=== PATIENT | male | born 1955 | race Asian ===

== ENCOUNTER → 2017-11-03 | Outpatient (CLI) | payer OTHER | END | disposition home or self-care (01) | LOC: RADPV 11:29 | PROVIDERS: ATTEND Internal Medicine | DX: R76.11 Nonspecific reaction to tuberculin skin test without active tuberculosis (principal) | CPT/HCPCS: 71046 ==

== ENCOUNTER → 2018-01-17 | Outpatient (CLI) | payer OTHER ==
[2018-01-18 06:07] LABS: RUBEOLA (MEASLES) IGG >300.0 AU/mL (Immune >29.9)
[2018-01-19 20:06] LABS: RUBEOLA (MEASLES) IGM <0.80 AU (0.00-0.79)
== END | disposition home or self-care (01) ==
LOC: EMPHLTH 10:24
PROVIDERS: ATTEND Internal Medicine
DX: Z02.1 Encounter for pre-employment examination (principal)
CPT/HCPCS: 86706; 86735; 86762; 86765; 86787

== ENCOUNTER 2019-03-19 05:20 | Day surgery (SDC) | payer OTHER ==
[~2019-03-19] VITALS: Ht 162.6 cm; Wt 75.0 kg
[~2019-03-19 05:20] MED LIST: AMLO10TA7 PO; LEVO100 PO
[2019-03-19] MEDS ORDERED: LIDOCAINE/PF 1% 2 ML VIAL INJ ONE (05:21)
[2019-03-19] MEDS ORDERED: EPINEPHrine 1:1,000 [1 MG/ML] AMP IM ONE (05:21)
[2019-03-19] MEDS ORDERED: HYALURONATE SODIUM 12 MG/ML 0.8 ML SYRINGE IO ONE (05:21)
[2019-03-19] MEDS ORDERED: POVIDONE-IODINE 10% 15 ML SOLUTION UD TP ONE (05:21)
[2019-03-19] MEDS ORDERED: HYALURONATE SOD/CHONDROITIN SOD 0.5 ML VIAL IO ONE (05:21)
[2019-03-19] MEDS ORDERED: RINGERS SOLUTION,LACTATED 500 ML IV ONE ×2 (05:23→05:30)
[2019-03-19] MEDS ORDERED: CYCLOPENTOLATE HCL 1% 2 ML OPHTHALMIC SOLUTION ONE (05:24)
[2019-03-19] MEDS ORDERED: FLURBIPROFEN SODIUM 0.03% 2.5 ML OPHTHALMIC SOLUTION ONE (05:24)
[2019-03-19] MEDS ORDERED: PHENYLEPHRINE HCL 2.5% 2 ML OPHTHALMIC SOLUTION ONE (05:24)
[2019-03-19] MEDS ORDERED: TROPICAMIDE 1% 2 ML OPHTHALMIC SOLUTION ONE (05:24)
[2019-03-19] MEDS ORDERED: TETRACAINE HCL/PF 0.5% 4 ML OPHTHALMIC SOLUTION ONE (05:25)
[2019-03-19] MEDS ORDERED: OFLOXACIN 0.3% 5 ML OPHTHALMIC SOLUTION ONE (05:25)
[2019-03-19] MEDS: TROPICAMIDE 1% 2 ML OPHTHALMIC SOLUTION OS SCH ×3 (06:16→06:28)
[2019-03-19] MEDS: CYCLOPENTOLATE HCL 1% 2 ML OPHTHALMIC SOLUTION OS SCH ×3 (06:16→06:28)
[2019-03-19] MEDS: FLURBIPROFEN SODIUM 0.03% 2.5 ML OPHTHALMIC SOLUTION OS SCH ×3 (06:16→06:28)
[2019-03-19] MEDS: OFLOXACIN 0.3% 5 ML OPHTHALMIC SOLUTION OS SCH ×3 (06:16→06:28)
[2019-03-19] MEDS: PHENYLEPHRINE HCL 2.5% 2 ML OPHTHALMIC SOLUTION OS SCH ×3 (06:16→06:28)
[2019-03-19] MEDS ORDERED: TETRACAINE HCL/PF 0.5% 4 ML OPHTHALMIC SOLUTION OS ONE (07:00)
[2019-03-19] MEDS ORDERED: MIDAZOLAM HCL 2 MG/2 ML VIAL IVP ONE (12:00)
[2019-03-19] MEDS ORDERED: FentaNYL CITRATE-PF 100 MCG/2 ML VIAL IVP ONE (12:00)
== END 2019-03-19 09:30 | disposition home or self-care (01) ==
LOC: SURGERY 05:20
PROVIDERS: ATTEND Ophthalmology
DX: E11.36 Type 2 diabetes mellitus with diabetic cataract (principal); H25.13 Age-related nuclear cataract, bilateral; I10 Essential (primary) hypertension; E78.00 Pure hypercholesterolemia, unspecified; Z79.899 Other long term (current) drug therapy; Z79.84 Long term (current) use of oral hypoglycemic drugs
CPT/HCPCS: 66984; 93005; C1780; J0171; J2250; J3010; J3490 ×2; J7120

== ENCOUNTER 2019-12-10 05:11 | Day surgery (SDC) | payer OTHER ==
[~2019-12-10] VITALS: Ht 160 cm; Wt 74.1 kg
[~2019-12-10 05:11] MED LIST changes: +ALPRAZolam 0.5 MG TABLET PO ONE; -AMLO10TA7 PO; +CYCLOPENTOLATE HCL 1% 2 ML OPHTHALMIC SOLUTION ONE; +DICLOFENAC SODIUM 0.1% 2.5 ML OPHTHALMIC SOLUTION ONE; -LEVO100 PO; +MOXIFLOXACIN HCL 0.5% 3 ML OPHTHALMIC SOLUTION ONE; +PHENYLEPHRINE HCL 2.5% 2 ML OPHTHALMIC SOLUTION ONE; +RINGERS SOLUTION,LACTATED 500 ML IV ONE; +TETRACAINE HCL/PF 0.5% 4 ML OPHTHALMIC SOLUTION OD ONE; +TETRACAINE HCL/PF 0.5% 4 ML OPHTHALMIC SOLUTION ONE; +TROPICAMIDE 1% 2 ML OPHTHALMIC SOLUTION ONE; +VALS1TAB54 PO
[2019-12-10] MEDS ORDERED: NEOMYCIN/POLYMYXIN B/DEXAMETH 3.5 GM OPHTHALMIC OINTMENT OD ONE (05:12)
[2019-12-10] MEDS ORDERED: PrednisoLONE ACETATE 1% 5 ML OPHTHALMIC SUSPENSION OD ONE (05:12)
[2019-12-10] MEDS ORDERED: HYALURONATE SOD/CHONDROITIN SOD 0.5 ML VIAL IO ONE (05:12)
[2019-12-10] MEDS ORDERED: LIDOCAINE/PF 1% 2 ML VIAL IARTIC ONE (05:12)
[2019-12-10] MEDS ORDERED: POVIDONE-IODINE 10% 15 ML SOLUTION UD TP ONE (05:12)
[2019-12-10] MEDS ORDERED: EPINEPHrine 1:1,000 [1 MG/ML] AMP IM ONE (05:12)
[2019-12-10] MEDS ORDERED: HYALURONATE SODIUM 12 MG/ML 0.8 ML SYRINGE IO ONE (05:12)
[2019-12-10] MEDS: MOXIFLOXACIN HCL 0.5% 3 ML OPHTHALMIC SOLUTION OD SCH ×3 (05:26→05:42)
[2019-12-10] MEDS: CYCLOPENTOLATE HCL 1% 2 ML OPHTHALMIC SOLUTION OD SCH ×3 (05:27→05:42)
[2019-12-10] MEDS: PHENYLEPHRINE HCL 2.5% 2 ML OPHTHALMIC SOLUTION OD SCH ×3 (05:28→05:42)
[2019-12-10] MEDS: TROPICAMIDE 1% 2 ML OPHTHALMIC SOLUTION OD SCH ×3 (05:28→05:41)
[2019-12-10] MEDS ORDERED: RINGERS SOLUTION,LACTATED 500 ML IV ONE (05:30)
[2019-12-10] MEDS: KETOROLAC TROMETHAMINE 0.5% 5 ML OPHTHALMIC SOLUTION OD SCH ×3 (05:33→05:41)
[2019-12-10] MEDS ORDERED: KETOROLAC TROMETHAMINE 0.5% 5 ML OPHTHALMIC SOLUTION ONE (05:38)
[2019-12-10] MEDS ORDERED: FentaNYL CITRATE-PF 100 MCG/2 ML VIAL IVP ONE (12:00)
[2019-12-10] MEDS ORDERED: MIDAZOLAM HCL 2 MG/2 ML VIAL IVP ONE (12:00)
== END 2019-12-10 08:30 | disposition home or self-care (01) ==
LOC: SURGERY 05:11
PROVIDERS: ATTEND Ophthalmology
DX: E11.36 Type 2 diabetes mellitus with diabetic cataract (principal); H25.11 Age-related nuclear cataract, right eye; I10 Essential (primary) hypertension; E78.00 Pure hypercholesterolemia, unspecified
CPT/HCPCS: 66982; 87635; J0171; J2250; J3010; J3490 ×2; J7120; V2632

== ENCOUNTER → 2021-09-28 | Outpatient (CLI) | payer OTHER ==
[~2021-09-28] MED LIST changes: -ALPRAZolam 0.5 MG TABLET PO ONE; -CYCLOPENTOLATE HCL 1% 2 ML OPHTHALMIC SOLUTION ONE; -DICLOFENAC SODIUM 0.1% 2.5 ML OPHTHALMIC SOLUTION ONE; -MOXIFLOXACIN HCL 0.5% 3 ML OPHTHALMIC SOLUTION ONE; -PHENYLEPHRINE HCL 2.5% 2 ML OPHTHALMIC SOLUTION ONE; -RINGERS SOLUTION,LACTATED 500 ML IV ONE; -TETRACAINE HCL/PF 0.5% 4 ML OPHTHALMIC SOLUTION OD ONE; -TETRACAINE HCL/PF 0.5% 4 ML OPHTHALMIC SOLUTION ONE; -TROPICAMIDE 1% 2 ML OPHTHALMIC SOLUTION ONE
== END | disposition home or self-care (01) ==
LOC: RADMN 13:46
PROVIDERS: ATTEND Internal Medicine
DX: R76.11 Nonspecific reaction to tuberculin skin test without active tuberculosis (principal)
CPT/HCPCS: 71045

== ENCOUNTER 2024-11-23 19:39 | Inpatient (IN) | payer OTHER ==
[~2024-11-23] VITALS: Ht 162.6 cm; Wt 60.0 kg
[2024-11-23] MEDS: MECLIZINE HCL 25 MG TABLET PO ONE (21:48)
[2024-11-23] MEDS: ACETAMINOPHEN 500 MG TABLET PO ONE (21:48)
[2024-11-23] MEDS: ONDANSETRON 4 MG TABLET PO ONE (21:48)
[2024-11-23 21:50] LABS: BASOPHILS % (AUTO) 0.6 % (0.0-2.0); EOSINOPHILS % (AUTO) 1.6 % (1.0-6.0); HEMATOCRIT 39.8 % (41-53); LYMPHOCYTES # (AUTO) 1.4 K/uL (1.0-4.8); LYMPHOCYTES % (AUTO) 18.3 % (22.0-44.0); MEAN CORPUSCULAR HEMOGLOBIN 27.5 pg (26.0-34.0); MEAN CORPUSCULAR HGB CONC 32.7 G/dL (31.0-37.0); MEAN CORPUSCULAR VOLUME 84 fL (80-100); MONOCYTES # (AUTO) 0.5 K/uL (0.1-1.0); MONOCYTES % (AUTO) 6.9 % (2.0-9.0); NEUTROPHILS # (AUTO) 5.4 K/uL (1.8-7.7); NEUTROPHILS % (AUTO) 72.6 % (40.0-70.0); PLATELET COUNT (AUTO) 198 K/uL (150-450); RED BLOOD CELL COUNT(AUTO) 4.72 MIL/uL (4.50-5.90); RED CELL DISTRIBUTION WIDTH 15.4 % (11.5-14.5); WHITE BLOOD COUNT (AUTO) 7.4 K/uL (4.5-11.0)
[2024-11-23 21:56] LABS: GLUCOMETER DEV NAME(LOC) ER.7; GLUCOSE,POINT OF CARE 156 MG/DL (70-110)
[2024-11-23 21:59] LABS: ANION GAP 9 mmol/L (8-16); CALCIUM, TOTAL 8.6 mg/dL (8.8-10.5); CARBON DIOXIDE 27 mmol/L (22-29); CHLORIDE 102 mmol/L (98-107); CREATININE 1.28 mg/dL (0.60-1.30); GLOMERULAR FILTR. RATE CALC 56 mL/min (>60); GLUCOSE,RANDOM 162 mg/dL (70-110); POTASSIUM 3.4 mmol/L (3.5-5.1); SODIUM SERUM 138 mmol/L (136-145); UREA NITROGEN, BLOOD 25 mg/dL (7-18)
[2024-11-23 22:21] LABS: TROPONIN I-HIGH SENSITIVITY 267 ng/L (<76)
[2024-11-23 22:26] LABS: PROTHROMBIN TIME 10.4 SEC (9.4-11.6)
[2024-11-23 22:47] LABS: ALBUMIN 2.8 g/dL (3.4-5.0); BILIRUBIN,DIRECT 0.1 mg/dL (0.00-0.20); BILIRUBIN,TOTAL 0.5 mg/dL (0.1-1.0); TOTAL PROTEIN, SERUM 6.7 g/dL (6.4-8.2)
[2024-11-23] MEDS ORDERED: MORPHINE SULFATE 2 MG/ML SYRINGE IVP PRN (23:15)
[2024-11-23] MEDS ORDERED: ONDANSETRON HCL 4 MG/2 ML VIAL IVP PRN (23:15)
[2024-11-23] MEDS ORDERED: OxyCODONE HCL/ACETAMINOPHEN 5-325 MG TABLET PO PRN (23:15)
[2024-11-23] MEDS ORDERED: ACETAMINOPHEN 325 MG TABLET PO PRN (23:15)
[2024-11-23] MEDS ORDERED: CloNIDine HCL 0.1 MG TABLET PO PRN (23:15)
[2024-11-23] MEDS ORDERED: MAGNESIUM HYDROXIDE SUSPENSION 30 ML UDCUP PO PRN (23:15)
[2024-11-23] MEDS ORDERED: POTASSIUM CHL 10 MEQ/WATER 50 ML IV PRN (23:30)
[2024-11-23] MEDS: ASPIRIN 81 MG CHEWABLE TABLET PO SCH (23:47)
[2024-11-23] MEDS: ATORVASTATIN CALCIUM 40 MG TABLET PO SCH (23:47)
[2024-11-23] MEDS: HEPARIN SODIUM,PORCINE 5,000 UNITS/ML VIAL SQ SCH (23:48)
[2024-11-23] MEDS: POTASSIUM CHLORIDE 20 MEQ ER TABLET PO PRN (23:51)
[2024-11-24] VITALS (7 sets, daily range): BP systolic 130–143; BP diastolic 83–94; PULSE 68–78; RESP 18; TEMP 97.9–98.4; O2SAT 97–99
[2024-11-24 00:28] LABS: TROPONIN I-HIGH SENSITIVITY 269 ng/L (<76)
[2024-11-24 00:39] LABS: APPEARANCE,URINE CLEAR (CLEAR); BILIRUBIN,URINE NEGATIVE (NEGATIVE); COLOR,URINE COLORLESS (YELLOW); GLUCOSE, URINE (UA) NEGATIVE (NEGATIVE); KETONES,URINE NEGATIVE (NEGATIVE); LEUKOCYTE ESTERASE ,URINE NEGATIVE (NEGATIVE); NITRATE,URINE NEGATIVE (NEGATIVE); OCCULT BLOOD,URINE TRACE (NEGATIVE); PH,URINE 6.5 (5.0-8.0); PROTEIN,URINE 30-70 mg/dL (NEGATIVE); SPECIFIC GRAVITIY, URINE 1.004 (1.003-1.030); UROBILINOGEN,URINE <=1.0 mg/dL (<=1.0)
[2024-11-24 00:51] LABS: RBC,URINE 0-2 /HPF (0-2); WBC,URINE None Seen /HPF (0-5)
[2024-11-24 00:52] LABS: BACTERIA,URINE None Seen /HPF (None Seen); SQUAMOUS EPITHELIAL CELL,UR Few /LPF (None Seen)
[2024-11-24] MEDS ORDERED: MORPHINE SULFATE 2 MG/ML SYRINGE IVP PRN (03:30)
[2024-11-24 06:49] LABS: CALCIUM, TOTAL 8.7 mg/dL (8.8-10.5); CREATININE 1.23 mg/dL (0.60-1.30); POTASSIUM 3.8 mmol/L (3.5-5.1)
[2024-11-24 07:00] LABS: TROPONIN I-HIGH SENSITIVITY 229 ng/L (<76)
[2024-11-24] MEDS: DOCUSATE SODIUM 100 MG CAPSULE PO SCH (08:30)
[2024-11-24] MEDS: FAMOTIDINE 20 MG TABLET PO SCH (08:30)
[2024-11-24 13:32] LABS: CHOL/HDL RATIO 3.4 (4.2-7.3)
[2024-11-24 13:35] LABS: HEMOGLOBIN A1C 8.2 % (3.8-5.6)
[2024-11-24] MEDS: CLOPIDOGREL BISULFATE 75 MG TABLET PO SCH (15:52)
[2024-11-25 00:24] VITALS: BP 135/71; PULSE 73; RESP 19; TEMP 97.7; O2SAT 97
[2024-11-25 04:58] VITALS: BP 141/93; PULSE 69; RESP 18; TEMP 97.5; O2SAT 98
[2024-11-25 08:40] VITALS: BP 160/76; PULSE 89; RESP 19; TEMP 98.1; O2SAT 100
[2024-11-25 20:06] VITALS: BP 152/97; PULSE 83; RESP 19; TEMP 98.2; O2SAT 100
[2024-11-26] VITALS: BP 150/91; PULSE 72; RESP 18; TEMP 98.4; O2SAT 100
[2024-11-26 04:00] VITALS: BP 154/92; PULSE 75; RESP 18; TEMP 98.2; O2SAT 100
[2024-11-26 08:15] VITALS: BP 143/100; PULSE 82; RESP 18; TEMP 98.1; O2SAT 99
[2024-11-26 11:53] VITALS: BP 143/92; PULSE 83; RESP 18; TEMP 98.2; O2SAT 99
[2024-11-26] MEDS: METOPROLOL SUCCINATE 50 MG ER TABLET PO SCH (15:03)
[2024-11-26] MEDS: LOSARTAN POTASSIUM 50 MG TABLET PO SCH (15:03)
[2024-11-26] MEDS ORDERED: ASPI-1450 PO (15:53)
[2024-11-26] MEDS ORDERED: LOSA-382 PO (15:53)
[2024-11-26] MEDS ORDERED: ATOR40TA28 PO (15:54)
[2024-11-26] MEDS ORDERED: CLOP75TA83 PO (15:54)
[2024-11-26] MEDS ORDERED: METO25XL PO (15:55)
[2024-11-26 15:59] VITALS: BP 152/87; PULSE 78; RESP 18; TEMP 98.2; O2SAT 100
[2024-11-26] MEDS ORDERED: POTA8TAB72 PO (15:59)
[2024-11-26] MEDS ORDERED: GLIM4TAB36 PO (15:59)
[2024-11-26] MEDS ORDERED: EMPA10TA3 PO (15:59)
[2024-11-26] MEDS ORDERED: METF-81 PO (15:59)
[2024-11-26] MEDS ORDERED: AMLO10TA55 PO (15:59)
== END 2024-11-26 17:45 | disposition home or self-care (01) | DRG 66 ==
LOC: EMS 19:39 → EDH 23:18 → 5S 11-24 01:06
PROVIDERS: ADMIT Internal Medicine; ATTEND Internal Medicine
DX: I63.29 Cerebral infarction due to unspecified occlusion or stenosis of other precerebral arteries (principal); E87.6 Hypokalemia; H53.2 Diplopia; I10 Essential (primary) hypertension; I25.5 Ischemic cardiomyopathy; E11.9 Type 2 diabetes mellitus without complications; I37.1 Nonrheumatic pulmonary valve insufficiency; I36.1 Nonrheumatic tricuspid (valve) insufficiency; E78.5 Hyperlipidemia, unspecified; Z86.73 Personal history of transient ischemic attack (TIA), and cerebral infarction without residual deficits
CPT/HCPCS: 70450; 70544; 70547; 70551; 71045; 80048; 80061; 80076; 81001; 82962; 83036; 83880; 84484; 85025; 85610; 85730; 92610; 93005; 93306; 93880; 97116; 97162; 97165; 97530; 97535; 99285; G0378; J1644; Q0162; 36415-L1; 36415-TC